=== PATIENT | female | born 1980 | race Caucasian/White ===

== ENCOUNTER → 2018-04-10 | Outpatient (CLI) | payer OTHER | LOC: FIMAGING 12:21 | PROVIDERS: ATTEND Advanced Practice Midwife | DX: O09.512 Supervision of elderly primigravida, second trimester (principal); Z3A.19 19 weeks gestation of pregnancy ==

== ENCOUNTER 2018-09-06 20:42 | Inpatient (IN) | payer OTHER ==
[2018-09-06] MEDS ORDERED: LIDOCAINE 1% 300 MG/30 ML SDV SC PRN (21:00)
[2018-09-06] MEDS ORDERED: MISOPROSTOL 200 MCG TAB PO PRN (21:00)
[2018-09-06] MEDS ORDERED: EPSOM SALT 454 GM TP PRN (21:00)
[2018-09-06] MEDS ORDERED: AMMONIA AROMATIC 1 EACH AMP IH PRN (21:00)
[2018-09-06] MEDS ORDERED: OLIVE OIL 118 ML BTL MISC PRN (21:00)
[2018-09-06] MEDS ORDERED: TERBUTALINE SULFATE 1 MG/ML VIAL IV PRN (21:00)
[2018-09-06] MEDS ORDERED: OXYTOCIN/RINGERS LACTATE 1,000 ML IV PRN (21:00)
[2018-09-06] MEDS ORDERED: IBUPROFEN 600 MG TAB PO PRN (21:00)
--- NOTE | 2018-09-06 21:12 | PDGENHP ---
History and Physical History and Physical: CARE: Center [facility] HPI: Patient is a 37 yo G 1 P 0 @ 40.4 weeks who presents to L&D with complaints SROM at 0230 on 09/06/18 and strong uterine contractions since late morning. EDC: 09/02/18 which is based on LMP: 11/26/17 which is known and consistent with Ultrasound at 10.2 weeks. Her is complicated by: AMA Review of Systems: Constitutional: Denies any fever, chills, or fatigue HEENT: denies any visual changes, difficulty swallowing, hearing loss Cardiovascular: Denies any chest pain, palpitations, leg swelling Respiratory: denies any cough, wheezing, or shortness of breathe GI: Denies any nausea, vomiting, diarrhea, constipation : denies any dysuria, urgency, frequency, vaginal bleeding Musculoskeletal: denies any muscle or bone pain Skin: denies any rashes Neuro: denies any headache, seizures, lightheadedness, dizziness, or loss of consciousness Psychiatric: denies any depression, anxiety, or SI/HI thoughts HISTORY: Previous OB history: nullip Social history: Family history: non-contributory Past medical history: pneumonia, abnormal thyroid labd Past surgical history: tonsillectomy Medications: PNV, solgar, folic acid, omega 3 EPA/DHA Allergies (list reaction): opiates-vomiting, chloroquine-vomiting LABS: Rh: O+ ABS: Neg Rubella: Immune HbsAg: NR HIV: NR VDRL: NR 1hr: 89 GC: Neg Chlamydia: Neg Pap: Normal 07/20/17 GBS: neg BMI: (prepreg) 19.4 PHYSICAL EXAM: Constitutional: WN, A&Ox3 HEENT: normocephalic atraumatic, supple Heart: RRR, no murmur Chest: CTA-B Skin: warm, dry, intact Abdomen: Soft, nontender, gravid SVE: 5-6/90/-1 Extremities: no edema, negative homans sign Neuro: grossly normal Psych: normal affect assessment: FHT baseline 135, +accels, no decels, moderate variability Contractions: toco q 3 Assessment: 1) 37 yo G 1 P 0 with IUP@ 40.4 2) SROM, with spontaneous labor 3) GBS neg 4) Cat 1 FHR tracing Plan: 1) Admit to L&D 2) labor epidural as needed 3) anticipate
[2018-09-06 21:15] LABS: PLATELET COUNT 208 10^3/uL (150-400)
[2018-09-06] MEDS ORDERED: BUPIVACAINE 0.25% 10 ML SDV ONE (21:19)
[2018-09-06] MEDS ORDERED: NALOXONE HCL 0.4 MG/ML INJ IVP PRN (21:20)
[2018-09-06] MEDS ORDERED: ONDANSETRON 4 MG/2 ML VIAL IVP PRN (21:20)
[2018-09-06] MEDS ORDERED: METOCLOPRAMIDE 10 MG/2 ML VIAL IVP PRN (21:20)
[2018-09-06] MEDS ORDERED: PHENYLEPHRINE HCL 100 MCG/ML SYR IVP PRN (21:20)
--- NOTE | 2018-09-06 21:57 | PDANEPAE ---
ANE Past Medical History - Cardiovascular History Hx Hypertension: No Hx Arrhythmias: No Hx Chest Pain: No - Pulmonary History Hx COPD: No Hx Asthma/Reactive Airway Disease: No Hx Recent Upper Respiratory Infection: No - Neurologic History Hx Cerebrovascular Accident: No Hx Seizures: No - Endocrine History Hx Diabetes: No - Renal History Hx Renal Disorders: No - Liver History Hx Hepatic Disorders: No - Neurological & Psychiatric Hx Hx Neurological and Psychiatric Disorders: No ANE Review of Systems Review of Systems: ANE Patient History - Allergies Allergies/Adverse Reactions: chloroquine Allergy (Verified 09/06/18 20:59) Opioids - Morphine Analogues Allergy (Verified 09/06/18 20:59) Vomiting ANE Labs/Vital Signs - Labs Result Diagrams: 09/06/18 20:05 ANE Physical Exam - Airway Mallampati Score: Class 1 Mouth exam: normal dental/mouth exam - Pulmonary Pulmonary: no respiratory distress, no rales or rhonchi, clear to auscultation - Cardiovascular Cardiovascular: regular rate and rhythym, no murmur, rub, or gallop - ASA Status ASA Status: II, E ANE Anesthesia Plan Anesthesia Plan: epidural
[2018-09-06] MEDS ORDERED: LIDOCAINE 1% 300 MG/30 ML SDV ONE (21:58)
[2018-09-06] MEDS ORDERED: OXYTOCIN 10 UNIT/ML VIAL ONE (21:58)
[2018-09-06] MEDS ORDERED: OLIVE OIL 118 ML BTL MISC ONE (21:58)
[2018-09-06] MEDS ORDERED: TERBUTALINE SULFATE 1 MG/ML VIAL ONE (21:58)
[2018-09-06] MEDS ORDERED: AMMONIA AROMATIC 1 EACH AMP IH ONE (21:58)
[2018-09-06] MEDS ORDERED: MISOPROSTOL 200 MCG TAB ONE (21:59)
[2018-09-06] MEDS: LR 1,000 ML IV PRN (22:25)
[2018-09-06] MEDS: fentaNYL 2MCG/ML/BUP 0.1% RTU 100 ML EP SCH (22:25)
[2018-09-07] MEDS: LR 1,000 ML IV PRN (04:00)
[2018-09-07] MEDS ORDERED: OXYTOCIN/LR *STANDARD DOSE PROTOCOL IV SCH (04:00)
--- NOTE | 2018-09-07 06:43 | OBPROG ---
Labor Progress Note Assessment/Plan: Assessment: 1) slow progress in labor Plan: 1) pitocin augmentation 09/07/18 06:40 Subjective/Intrapartum Course: 09/07/18 06:41 pt is comfortable with epidural. FOB and private advisor at bedside for support. Pt is sleeping. Objective: 09/06/18 20:05 Patient ABO/Rh O POSITIVE 09/06/18 20:05 - SVE Dilation (cm): 6 Effacement (%): 80 Station: -1 Membranes: SROM Amniotic Fluid Color: Meconium Stained - Contraction Pattern Assessment Current Contraction Pattern: Irregular (coupling) - FHR Assessment [place] FHR (bpm): 135 FHR Pattern Variability: Moderate FHR Category: 1 - AP Antepartum Course: 09/07/18 06:44 transfer of care to Lamar Gonzales CNM at this time Oxytocin Orders Assessment - Pre-Induction/Augmentation Assessment Gestational Age: 40 week(s) and 5 day(s) ICD10 Worksheet Patient Problems: Problems Problem Status Onset Delayed delivery after spontaneous rupture of membranes Acute
[2018-09-07] MEDS: fentaNYL 2MCG/ML/BUP 0.1% RTU 100 ML EP SCH (07:09)
--- NOTE | 2018-09-07 12:01 | OBPROG ---
Labor Progress Note Assessment/Plan: Assessment: [id number] with IUP@40-4 protracted labor GBS Negative cat 1 FHR tracing MSF Prolong ROM Plan: Reassess 2-4hr/PRN anticipate 09/07/18 11:58 Subjective/Intrapartum Course: 09/07/18 06:41 pt is comfortable with epidural. FOB and textile engineer at bedside for support. Pt is sleeping. 09/07/18 09:15 Pt doing well, was able to sleep throughout the night, she reports occ pressure. She denies any pain, comfortable with MAYRA. FOB and textile engineer are present at BS and supportive. We discussed need for IUPC and discussed protracted labor. Pt agreeable to cont pitocin and placement of IUPC. Objective: 09/06/18 20:05 Patient ABO/Rh O POSITIVE 09/06/18 20:05 - SVE Dilation (cm): 7 Effacement (%): 90 Station: -1 Membranes: SROM Amniotic Fluid Color: Meconium Stained - Contraction Pattern Assessment Current Contraction Pattern: Irregular (coupling) - Procedures Non-surgical Procedures: IUPC - AP Antepartum Course: 09/07/18 06:44 transfer of care to Lamar Gonzales CNM at this time Oxytocin Orders Assessment - Pre-Induction/Augmentation Assessment Gestational Age: 40 week(s) and 5 day(s) ICD10 Worksheet Patient Problems: Problems Problem Status Onset Delayed delivery after spontaneous rupture of membranes Acute
[2018-09-07] MEDS ORDERED: SIMETHICONE 80 MG TAB CHEW PO PRN (13:45)
[2018-09-07] MEDS ORDERED: HYDROCORTISONE 0.5% CREAM TP PRN (13:45)
--- NOTE | 2018-09-07 13:45 | OBDEL ---
Info Type: Vaginal Presentation at Delivery: Vertex L&D Analgesia/Anesthesia Type: Epidural GBS+: No Intrapartum Medications: Generic Name Dose Route Start Last Admin Trade Name Sheri PRN Reason Stop Dose Admin Lactated Ringer's 1,000 mls @ 0 mls/hr 09/06/18 21:00 09/07/18 04:00 Lr IV 09/07/18 20:59 1,000 mls PRN PRN Administration SEE PROTOCOL CONDITIONS Protocol Per Protocol Fentanyl/Bupivacaine HCl 100 mls @ 0 mls/hr 09/06/18 21:30 09/07/18 07:09 Fentanyl/Bupivacaine/Ns 2 Mcg/Ml 0.1% (Premix EP 09/16/18 21:29 100 mls CONT NANDA Administration Protocol As Directed Oxytocin/Lactated Ringer's 500 mls @ 0 mls/hr 09/07/18 04:00 09/07/18 04:00 Pitocin 30 Units/Lr (Premix) IV 03/06/19 03:59 500 mls CONT NANDA Administration Protocol Per Protocol - Hospital Course Intrapartum: 09/07/18 06:41 pt is comfortable with epidural. FOB and dulite machine bluer at bedside for support. Pt is sleeping. 09/07/18 09:15 Pt doing well, was able to sleep throughout the night, she reports occ pressure. She denies any pain, comfortable with MAYRA. FOB and dulite machine bluer are present at BS and supportive. We discussed need for IUPC and discussed protracted labor. Pt agreeable to cont pitocin and placement of IUPC. Indications for Delivery: Spontaneous Labor, SROM Vaginal Delivery - Delivery Provider Delivery Physician/CNM: Lamar Gonzales - Labor and Delivery Onset of Contractions Date: 09/06/18 Onset of Contractions Time: 02:30 Onset of Contractions Type: Augmented Rupture of Membranes Date: 09/06/18 Rupture of Membranes Time: 02:30 Rupture of Membranes Type: Spontaneous Amniotic Fluid Color: Meconium Stained Dilation Complete Date: 09/07/18 Dilation Complete Time: 12:39 Placenta Delivery Date: 09/07/18 Placenta Delivery Time: 13:23 Total Hours of Labor: 34 Non-surgical Procedures: IUPC Laceration: 2nd Degree Repair: 3-0, Vicryl Vaginal Sponge Count Correct: Yes Vaginal Needle Count Correct: Yes Vaginal Sweep Performed: Yes EBL: 300 - Medications Labor Augmentation/Induction Methods Used: Pitocin Labor Augmentation/Induction Indication: Inadequate Contraction Frequency, Inadequate Contraction Strength [place] Data MINI: 09/01/18 Gestational Age: 40 week(s) and 6 day(s) [place] Delivery Date: 09/07/18 Delivery Time: 13:07 Sex of : Male Score (1 Min): 8 Score (5 Min): 9 ICD10 Worksheet Patient Problems: Problems Problem Status Onset Delayed delivery after spontaneous rupture of membranes Acute (spontaneous vaginal delivery) Acute Second degree perineal laceration during delivery Acute - ICD10 Problem Qualifiers (1) (spontaneous vaginal delivery) (2) Second degree perineal laceration during delivery
[2018-09-07] MEDS: ACETAMINOPHEN 325 MG TAB PO PRN ×2 (17:51→23:28)
[2018-09-07] MEDS: DOCUSATE SODIUM 100 MG CAP PO PRN (23:28)
[2018-09-07] MEDS: IBUPROFEN 600 MG TAB PO PRN (23:28)
[2018-09-08] MEDS: ACETAMINOPHEN 325 MG TAB PO PRN ×3 (05:42→17:51)
[2018-09-08] MEDS: IBUPROFEN 600 MG TAB PO PRN ×3 (05:42→17:50)
--- NOTE | 2018-09-08 08:48 | OBPP ---
Progress Note Assessment/Plan: Assessment: [id number] s/p PPD#1 Plan: Routine PP care support PRN cont PO hydration heating pad for cramps anticipate d/c home tomorrow 09/08/18 08:45 Objective: 09/06/18 20:05 Patient ABO/Rh O POSITIVE 09/06/18 20:05 Temp Pulse Resp BP Pulse Ox 36.9 C 95 18 121/75 H 95 09/07/18 23:45 09/07/18 23:45 09/07/18 19:45 09/07/18 19:45 09/07/18 19:45 Uterine Position/Fundal Height: Umbilicus -2, Midline Uterine Tone: Firm
[2018-09-08] MEDS: DOCUSATE SODIUM 100 MG CAP PO PRN ×2 (11:57→21:35)
--- NOTE | 2018-09-08 19:30 | POSTANESTH ---
Post Anesthetic Evaluation Cardiovascular Status: Normal, Stable Respiratory Status: Normal, Stable Level of Consciousness/Mental Status: Can Participate in Eval Pain Control: Adequate, Prn Tx Ordered Nausea/Vomiting Control: Adequate, Prn Tx Ordered Complications Possibly Related to Anesthesia: None Noted (Pt doing well s/p MAYRA for delivery. No residual block, no headaches. Pt was satisfied with effectiveness of epidural for labor pain control.)
[2018-09-09] MEDS: IBUPROFEN 600 MG TAB PO PRN ×3 (06:22→12:59)
[2018-09-09] MEDS: ACETAMINOPHEN 325 MG TAB PO PRN ×3 (06:22→12:59)
[2018-09-09 08:52] VITALS: BP 120/71
--- NOTE | 2018-09-09 11:36 | OBGCSDC ---
General Delivery Information - General Info : 1 Para: 1 Abortions: 0 Type: Vaginal L&D Analgesia/Anesthesia Type: Epidural Admission Date: 09/06/18 Labs: Patient ABO/Rh O POSITIVE 09/06/18 20:05 Hct 35.6 % (38.0-47.0) L 09/06/18 20:05 - Hospital Course Antepartum: 09/07/18 06:44 transfer of care to Lamar Gonzales CNM at this time Intrapartum: 09/07/18 06:41 pt is comfortable with epidural. FOB and powerhouse helper at bedside for support. Pt is sleeping. 09/07/18 09:15 Pt doing well, was able to sleep throughout the night, she reports occ pressure. She denies any pain, comfortable with MAYRA. FOB and powerhouse helper are present at BS and supportive. We discussed need for IUPC and discussed protracted labor. Pt agreeable to cont pitocin and placement of IUPC. : 09/09/18 11:35 S) Pt doing well, reports min pain and bleeding. she is ambulating and voiding without difficulty. She is . She desires discharge home today. O) VSS, afebrile constitutional: WNF, A&Ox3 HEENT: normocephalic, atraumatic, supple Heart: RRR, No murmur Chest: CTA-B Breasts: soft, nontender,not engorged, but full, nipples intact Abdomen: Soft, nontender Uterus: Firm at U-1 Lochia: Minimal rubra Perineum: Intact, healing well Extremities: Trace edema, and negative Adonay's sign Neuro: Grossly normal A) 37-year-old S/P PPD#2 P) Discharge home today Continue Pelvic rest [id number] Discussed danger signs (infection, preeclampsia, depression, heavy bleeding, etc ) RTO in 2/4/6 weeks Vaginal - Delivery Provider Delivery Physician/CNM: Lamar Gonzales - Diagnosis Labor: Augmented Rupture of Membranes Type: Spontaneous Amniotic Fluid Color: Meconium Stained Laceration: 2nd Degree Repair: 3-0, Vicryl - Procedures Non-surgical Procedures: IUPC - Delivery Non-surgical Procedures: IUPC EBL: 300 [place] Data MINI: 09/01/18 Gestational Age: 41 week(s) and 1 day(s) [place] Delivery Date: 09/07/18 Delivery Time: 13:07 Sex of Infant: Male Weight (gm): 3935 g Score (1 Min): 8 Score (5 Min): 9
== END 2018-09-09 16:28 | disposition home or self-care (01) | DRG 807 ==
LOC: FLD 20:42 → FOB 09-07 17:15
PROVIDERS: ADMIT Advanced Practice Midwife; ATTEND Advanced Practice Midwife
PROC: 10E0XZZ Delivery of Products of Conception, External Approach (ICD-10-PCS; principal; 2018-09-07)
PROC: 0KQM0ZZ Repair Perineum Muscle, Open Approach (ICD-10-PCS; principal; 2018-09-07)
PROC: 10H073Z Insertion of Monitoring Electrode into Products of Conception, Via Natural or Artificial Opening (ICD-10-PCS; principal; 2018-09-07)
DX: O63.0 Prolonged first stage (of labor) (principal); O48.0 Post-term pregnancy; O77.0 Labor and delivery complicated by meconium in amniotic fluid; O70.1 Second degree perineal laceration during delivery; Z3A.41 41 weeks gestation of pregnancy; Z37.0 Single live birth
CPT/HCPCS: J2590; J3105